=== PATIENT | female | born 1945 | race Caucasian/White ===

== ENCOUNTER → 2016-10-21 | Outpatient (CLI) | payer BC, MEDICARE, OTHER ==
[~2016-10-21] MED LIST: GABA300C10 PO; HYDR25TA6 PO; QUIN20TA7 PO; ROPI2TAB4 PO; SIMV40TA3 PO; ZOLP10TA5 PO
[2016-10-21 12:32] LABS: ASPARTATE AMINO TRANSFERASE 36 U/L (15-37); BLOOD UREA NITROGEN 22 mg/dL (7-18)
== END | disposition home or self-care (01) ==
LOC: STAR 10:39
PROVIDERS: ATTEND Neurological Surgery
DX: Z01.818 Encounter for other preprocedural examination (principal); M41.86 Other forms of scoliosis, lumbar region; M51.36 Other intervertebral disc degeneration, lumbar region; M43.16 Spondylolisthesis, lumbar region; M47.896 Other spondylosis, lumbar region; R79.1 Abnormal coagulation profile
CPT/HCPCS: 36415; 71020; 72114; 80053; 81003; 85025; 85610; 85730; 93005

== ENCOUNTER 2016-11-03 07:30 | Inpatient (IN) | payer MEDICARE, BC ==
[~2016-11-03] VITALS: Ht 172.7 cm; Wt 81.0 kg
[2016-11-03] MEDS ORDERED: BACITRACIN 50,000 UNIT ONE (08:42)
[2016-11-03] MEDS ORDERED: THROMBIN 5,000 UNIT VIAL TP ONE ×2 (08:42→14:44)
[2016-11-03] MEDS ORDERED: BUPIVACAINE/PF-EPI 0.5% 1:200K ONE (08:42)
[2016-11-03] MEDS ORDERED: PROPOFOL 10 MG/ML, 50ML ONE (10:24)
[2016-11-03] MEDS ORDERED: PROPOFOL 10 MG/ML, 20ML ONE (10:24)
[2016-11-03] MEDS ORDERED: DEXAMETHASONE 4 MG/ML, 1ML ONE (10:24)
[2016-11-03] MEDS ORDERED: CEFAZOLIN 1,000 MG ONE (10:24)
[2016-11-03] MEDS ORDERED: SUCCINYLCHOLINE 20 MG/ML, 10ML ONE (10:24)
[2016-11-03] MEDS ORDERED: ONDANSETRON 2MG/ML, 2ML ONE (10:24)
[2016-11-03] MEDS ORDERED: ROCURONIUM 10 MG/ML ONE (10:24)
[2016-11-03] MEDS ORDERED: LACTATED RINGERS 1,000 ML IV SCH (13:22)
[2016-11-03 13:49] VITALS: BP 146/81
[2016-11-03] MEDS ORDERED: MIDAZOLAM 1 MG/ML, 2ML ONE (14:07)
[2016-11-03] MEDS ORDERED: FENTANYL PF 250 MCG/5ML ONE (14:07)
[2016-11-03] MEDS ORDERED: MIDAZOLAM 1 MG/ML, 2ML IV PRN (14:30)
[2016-11-03] MEDS ORDERED: ALBUTEROL SULFATE 2.5 MG/3 ML NPPB PRN (14:30)
[2016-11-03] MEDS ORDERED: LABETALOL 5MG/ML, 20ML IV PRN (14:30)
[2016-11-03] MEDS ORDERED: OXYcodone 5 MG/5 ML ORAL.SOL UDC PO PRN (14:30)
[2016-11-03] MEDS ORDERED: HYDROmorphone 1 MG/ML, 1ML IV PRN (14:30)
[2016-11-03] MEDS ORDERED: ACETAMINOPHEN 325 MG TABLET PO PRN (14:30)
[2016-11-03] MEDS ORDERED: EPHEDRINE 50 MG/ML, 1ML IVPush PRN (14:30)
[2016-11-03] MEDS ORDERED: MEPERIDINE/PF 25MG/0.5ML IVPush PRN (14:30)
[2016-11-03] MEDS ORDERED: hydrALAzine 20 MG/ML, 1ML IV PRN (14:30)
[2016-11-03] MEDS ORDERED: METOPROLOL 1 MG/ML, 5ML IV PRN (14:30)
[2016-11-03] MEDS ORDERED: HYDROcodone/APAP 7.5-325MG/15ML UDC PO PRN (14:30)
[2016-11-03] MEDS ORDERED: PROMETHAZINE 25 MG/ML, 1ML IV PRN (14:30)
[2016-11-03] MEDS ORDERED: ONDANSETRON 2MG/ML, 2ML IVPush PRN (14:30)
[2016-11-03] MEDS ORDERED: VANCOMYCIN 1,000 MG ONE (14:43)
[2016-11-03] MEDS ORDERED: REMIFENTANIL 2 MG ONE (15:02)
[2016-11-03] MEDS: FENTANYL PF 100 MCG/2ML IV PRN ×2 (18:30→18:48)
[2016-11-03] MEDS ORDERED: OXYcodone 5 MG/5 ML ORAL.SOL UDC ONE (18:31)
[2016-11-03] MEDS ORDERED: FENTANYL PF 100 MCG/2ML ONE (18:31)
[2016-11-03] MEDS ORDERED: HYDROmorphone PCA 30 MG/30 ML ONE (18:37)
[2016-11-03] MEDS ORDERED: HYDROmorphone 1 MG/ML, 1ML ONE (18:49)
[2016-11-03] MEDS ORDERED: HYDROmorphone PCA 30 MG/30 ML IV PRN (19:00)
[2016-11-03] MEDS ORDERED: MEPERIDINE/PF 25MG/0.5ML ONE (19:19)
[2016-11-03 19:45] VITALS: BP 116/70
[2016-11-03] MEDS ORDERED: PHARMACY MAY ADJ FOR RENAL FX MC PRN (21:00)
[2016-11-03] MEDS ORDERED: TIZANIDINE 4MG TABLET PO PRN (21:00)
[2016-11-03] MEDS ORDERED: BISACODYL 10 MG SUPP PR PRN (21:30)
[2016-11-03] MEDS ORDERED: morphine SULFATE 10 MG/ML, 1ML IV PRN (21:30)
[2016-11-03] MEDS ORDERED: DIPHENHYDRAMINE 50 MG/ML, 1ML IVPush PRN (21:30)
[2016-11-03] MEDS ORDERED: DIPHENHYDRAMINE 25 MG CAPSULE PO PRN (21:30)
[2016-11-03] MEDS ORDERED: MAGNESIUM HYDROXIDE 8%, 30ML UDC PO PRN (21:30)
[2016-11-03] MEDS ORDERED: OXYcodone/APAP 5/325MG TABLET PO PRN (21:30)
[2016-11-03] MEDS ORDERED: DIAZEPAM 5 MG TABLET PO PRN (21:30)
[2016-11-03] MEDS ORDERED: ONDANSETRON 2MG/ML, 2ML IV PRN (21:30)
[2016-11-03] MEDS: SIMVASTATIN 40 MG TABLET PO SCH (22:30)
[2016-11-03] MEDS: ZOLPIDEM 10MG TABLET PO SCH (22:30)
[2016-11-03] MEDS: NS + 20MEQ KCL 1,000 ML IV SCH (22:31)
[2016-11-03] MEDS: CEFAZOLIN PMX 1GM/50ML 50 ML IVPB SCH (23:20)
[2016-11-04 00:16] VITALS: BP 96/47
[2016-11-04] MEDS ORDERED: ROPINIROLE 1MG TABLET PO PRN (00:30)
[2016-11-04 06:16] LABS: BLOOD UREA NITROGEN 16 mg/dL (7-18)
[2016-11-04] MEDS: CEFAZOLIN PMX 1GM/50ML 50 ML IVPB SCH (07:46)
[2016-11-04] MEDS: SENNA/DOCUSATE TABLET PO SCH (07:46)
[2016-11-04] MEDS: QUINAPRIL 20MG TABLET PO SCH (07:47)
[2016-11-04] MEDS: HYDROCHLOROTHIAZIDE 25 MG TABLET PO SCH (07:47)
[2016-11-04] MEDS: GABAPENTIN 300 MG CAPSULE PO SCH (07:47)
[2016-11-04 08:35] VITALS: BP 123/64
[2016-11-04] MEDS: NS + 20MEQ KCL 1,000 ML IV SCH ×2 (09:22→20:41)
[2016-11-04 12:26] VITALS: BP 122/63
[2016-11-04 19:00] VITALS: BP 110/63
[2016-11-04] MEDS: HYDROcodone/APAP 10/325 MG TABLET PO PRN (20:26)
[2016-11-04] MEDS: ZOLPIDEM 10MG TABLET PO SCH (22:37)
[2016-11-04] MEDS: SIMVASTATIN 40 MG TABLET PO SCH (22:37)
[2016-11-04 23:18] VITALS: BP 108/74
[2016-11-05] MEDS: HYDROcodone/APAP 10/325 MG TABLET PO PRN ×5 (00:56→21:56)
[2016-11-05 03:15] VITALS: BP 134/71
[2016-11-05] MEDS: NS + 20MEQ KCL 1,000 ML IV SCH ×2 (05:14→16:31)
[2016-11-05 05:38] LABS: BLOOD UREA NITROGEN 11 mg/dL (7-18)
[2016-11-05 07:35] VITALS: BP 145/74
[2016-11-05] MEDS: HYDROCHLOROTHIAZIDE 25 MG TABLET PO SCH (09:31)
[2016-11-05] MEDS: QUINAPRIL 20MG TABLET PO SCH (09:31)
[2016-11-05] MEDS: GABAPENTIN 300 MG CAPSULE PO SCH (09:31)
[2016-11-05] MEDS: SENNA/DOCUSATE TABLET PO SCH (09:32)
[2016-11-05 15:06] VITALS: BP 150/73
[2016-11-05 18:39] VITALS: BP 140/70
[2016-11-05] MEDS: ZOLPIDEM 10MG TABLET PO SCH (21:56)
[2016-11-05] MEDS: SIMVASTATIN 40 MG TABLET PO SCH (21:57)
[2016-11-06] MEDS: NS + 20MEQ KCL 1,000 ML IV SCH ×2 (01:30→12:14)
[2016-11-06 02:15] VITALS: BP 135/75
[2016-11-06] MEDS: HYDROcodone/APAP 10/325 MG TABLET PO PRN (04:04)
[2016-11-06 06:45] VITALS: BP 113/74
[2016-11-06] MEDS: QUINAPRIL 20MG TABLET PO SCH (08:34)
[2016-11-06] MEDS: HYDROCHLOROTHIAZIDE 25 MG TABLET PO SCH (08:34)
[2016-11-06] MEDS: GABAPENTIN 300 MG CAPSULE PO SCH (08:37)
[2016-11-06] MEDS: SENNA/DOCUSATE TABLET PO SCH (08:37)
[2016-11-06] MEDS ORDERED: HYDR-3307 PO (09:30)
[2016-11-06] MEDS ORDERED: TIZA4TAB PO (09:30)
[2016-11-06 16:32] VITALS: BP 157/80
== END 2016-11-06 16:30 | disposition home or self-care (01) | DRG 460 ==
LOC: ORIP 12:40 → 4NOR 20:00
PROVIDERS: ADMIT Neurological Surgery; ATTEND Neurological Surgery
PROC: 0SB20ZZ Excision of Lumbar Vertebral Disc, Open Approach (ICD-10-PCS; 2016-11-03)
PROC: 0SG10AJ Fusion of 2 or more Lumbar Vertebral Joints with Interbody Fusion Device, Posterior Approach, Anterior Column, Open Approach (ICD-10-PCS; principal; 2016-11-03 16:00)
DX: M48.06 Spinal stenosis, lumbar region (principal); M43.10 Spondylolisthesis, site unspecified; I10 Essential (primary) hypertension; G25.81 Restless legs syndrome; Z85.3 Personal history of malignant neoplasm of breast; M81.0 Age-related osteoporosis without current pathological fracture; M19.90 Unspecified osteoarthritis, unspecified site; Z79.899 Other long term (current) drug therapy; Z88.1 Allergy status to other antibiotic agents; Z87.891 Personal history of nicotine dependence; Z90.10 Acquired absence of unspecified breast and nipple; Z90.710 Acquired absence of both cervix and uterus; Z88.8 Allergy status to other drugs, medicaments and biological substances; Z88.2 Allergy status to sulfonamides; Z82.3 Family history of stroke; Z82.61 Family history of arthritis
CPT/HCPCS: 36415; 72100; 80048; 85025; 86850; 86900; 95938; 95941; C1713; C1776; J0690; J1100; J1170; J2250; J2405; J2704; J3010; J3370; J3480; C1762; J0330; J7120

== ENCOUNTER → 2017-03-09 | Outpatient (CLI) | payer BC ==
[~2017-03-09] MED LIST changes: +HYDR-3307 PO; +QUIN20TA17 PO; -QUIN20TA7 PO; +TIZA4TAB PO
== END | disposition home or self-care (01) ==
LOC: CFH 10:16
PROVIDERS: ATTEND Obstetrics & Gynecology Gynecology
DX: Z12.31 Encounter for screening mammogram for malignant neoplasm of breast (principal); Z85.3 Personal history of malignant neoplasm of breast; Z90.12 Acquired absence of left breast and nipple
CPT/HCPCS: 77063; G0202

== ENCOUNTER 2017-11-23 09:21 | Inpatient (IN) | payer MEDICARE, BC ==
[~2017-11-23] VITALS: Ht 172.7 cm; Wt 80.3 kg
[2017-11-23] MEDS ORDERED: VANCOMYCIN PER PHARMACY MC ONE (10:00)
[2017-11-23] MEDS ORDERED: AMPICILLIN/SULBACTAM 3 GM in SODIUM CHLORIDE 0.9% 100 ML IV ONE (10:00)
[2017-11-23] MEDS ORDERED: ACETAMINOPHEN 500 MG TABLET PO ONE (10:00)
[2017-11-23] MEDS ORDERED: VANCOMYCIN 1,600 MG in SODIUM CHLORIDE 0.9% 250 ML IV ONE (10:00)
[2017-11-23] MEDS ORDERED: ACETAMINOPHEN 500 MG TABLET ONE (10:20)
[2017-11-23 10:27] LABS: BASOPHILS # (AUTO) 0.03 x10^3/uL (0-0.1); BASOPHILS % (AUTO) 0 % (0-1); EOSINOPHILS # (AUTO) 0.02 x10^3/uL (0-0.4); EOSINOPHILS % (AUTO) 0 % (1-7); LYMPHOCYTES % (AUTO) 8 % (22-44); MD NO; MEAN CORPUSCULAR HEMOGLOBIN 31.9 pg (27.0-34.8); MEAN CORPUSCULAR HGB CONC 34.1 g/dL (32.4-35.8); MEAN CORPUSCULAR VOLUME 93.4 fL (80-100); MEAN PLATELET VOLUME 9.3 fL (7.4-10.4); MONOCYTES # (AUTO) 0.67 x10^3/uL (0.2-0.8); MONOCYTES % (AUTO) 5 % (2-9); NEUTROPHILS # (AUTO) 11.58 x10^3/uL (1.8-6.8); NEUTROPHILS % (AUTO) 87 % (42-75); PLATELET COUNT 226 x10^3/uL (130-400); RED BLOOD COUNT 4.59 x10^6/uL (3.82-5.3); RED CELL DISTRIBUTION WIDTH 13.4 % (9.6-15.2)
[2017-11-23] MEDS ORDERED: VANCOMYCIN 1,500 MG in SODIUM CHLORIDE 0.9% 250 ML IV ONE (10:30)
[2017-11-23 10:42] LABS: ALANINE AMINOTRANSFERASE 44 U/L (12-78); ALBUMIN 3.9 g/dL (3.4-5.0); ANION GAP 9 mmol/L (5-15); CALCIUM 9.3 mg/dL (8.5-10.1); CHLORIDE 97 mmol/L (98-107); CREATININE 0.95 mg/dL (0.55-1.02)
[2017-11-23 10:44] LABS: ALKALINE PHOSPHATASE 77 U/L (45-117); BILIRUBIN,TOTAL 0.8 mg/dL (0.2-1.0); TOTAL PROTEIN 8.2 g/dL (6.4-8.2)
[2017-11-23] MEDS ORDERED: SODIUM CHLORIDE 0.9% 1,000ML IVBOLUS ONE (11:30)
[2017-11-23 12:40] VITALS: BP 114/69
[2017-11-23] MEDS ORDERED: SODIUM CHLORIDE 0.9% 1,000 ML IV SCH (13:19)
[2017-11-23 13:30] VITALS: BP 114/69
[2017-11-23] MEDS ORDERED: ENALAPRILAT 1.25 MG/ML, 2ML IVPush PRN (13:30)
[2017-11-23] MEDS ORDERED: BISACODYL 10 MG SUPP PR PRN (13:30)
[2017-11-23] MEDS ORDERED: DOCUSATE 100 MG CAPSULE PO PRN (13:30)
[2017-11-23] MEDS ORDERED: ACETAMINOPHEN 325 MG TABLET PO PRN (13:30)
[2017-11-23] MEDS ORDERED: ONDANSETRON 2MG/ML, 2ML IVPush PRN (13:30)
[2017-11-23] MEDS ORDERED: POLYETHYLENE GLYCOL 17 GM PACKET PO PRN (13:30)
[2017-11-23] MEDS ORDERED: LABETALOL 5MG/ML, 20ML IVPush PRN (13:30)
[2017-11-23] MEDS: HEPARIN 5,000 UNITS/ML, 1ML SQ SCH ×2 (14:45→21:53)
[2017-11-23] MEDS: AMPICILLIN/SULBACTAM 3 GM in SODIUM CHLORIDE 0.9% 100 ML IV SCH ×2 (16:14→21:53)
[2017-11-23 18:37] VITALS: BP 136/69
[2017-11-23] MEDS: DOXYCYCLINE 100MG TABLET PO SCH (20:06)
[2017-11-23] MEDS ORDERED: SIMVASTATIN 40 MG TABLET PO SCH (21:00)
[2017-11-23] MEDS ORDERED: ZOLPIDEM 10MG TABLET PO PRN (21:00)
[2017-11-23] MEDS ORDERED: ROPINIROLE 1MG TABLET PO SCH (21:00)
[2017-11-24 02:08] VITALS: BP 127/71
[2017-11-24] MEDS: AMPICILLIN/SULBACTAM 3 GM in SODIUM CHLORIDE 0.9% 100 ML IV SCH ×3 (03:48→15:32)
[2017-11-24 05:11] LABS: BASOPHILS # (AUTO) 0.03 x10^3/uL (0-0.1); BASOPHILS % (AUTO) 1 % (0-1); EOSINOPHILS # (AUTO) 0.22 x10^3/uL (0-0.4); EOSINOPHILS % (AUTO) 3 % (1-7); LYMPHOCYTES # (AUTO) 1.38 x10^3/uL (1-3.4); LYMPHOCYTES % (AUTO) 22 % (22-44); MD NO; MEAN CORPUSCULAR VOLUME 94.1 fL (80-100); MEAN PLATELET VOLUME 9.6 fL (7.4-10.4); MONOCYTES # (AUTO) 0.78 x10^3/uL (0.2-0.8); MONOCYTES % (AUTO) 12 % (2-9); NEUTROPHILS # (AUTO) 3.86 x10^3/uL (1.8-6.8); NEUTROPHILS % (AUTO) 62 % (42-75); PLATELET COUNT 182 x10^3/uL (130-400); RED CELL DISTRIBUTION WIDTH 13.8 % (9.6-15.2)
[2017-11-24 05:22] LABS: ANION GAP 6 mmol/L (5-15); CALCIUM 8.4 mg/dL (8.5-10.1); CHLORIDE 103 mmol/L (98-107)
[2017-11-24 05:23] LABS: CREATININE 0.81 mg/dL (0.55-1.02)
[2017-11-24] MEDS: HEPARIN 5,000 UNITS/ML, 1ML SQ SCH ×2 (07:00→15:00)
[2017-11-24 08:11] VITALS: BP 131/87
[2017-11-24] MEDS: DOXYCYCLINE 100MG TABLET PO SCH (08:54)
[2017-11-24 13:10] VITALS: BP 141/88
[2017-11-24] MEDS ORDERED: CEPH-368 PO (15:05)
== END 2017-11-24 17:01 | disposition home or self-care (01) | DRG 872 ==
LOC: ED 10:08 → EDIP 11:15 → 3NE 11:45
PROVIDERS: ADMIT Internal Medicine; ATTEND Internal Medicine
DX: A41.9 Sepsis, unspecified organism (principal); E87.1 Hypo-osmolality and hyponatremia; L03.114 Cellulitis of left upper limb; R59.1 Generalized enlarged lymph nodes; I10 Essential (primary) hypertension; Z85.3 Personal history of malignant neoplasm of breast; Z90.12 Acquired absence of left breast and nipple; Z88.0 Allergy status to penicillin; Z88.1 Allergy status to other antibiotic agents
CPT/HCPCS: 36415; 71045; 80048; 80053; 83605; 84145; 85025; 87040; 93005; 96365; 96368; J0295; J1644; J3370; J7030; J7050